=== PATIENT | female | born 1980 | race Hispanic/Latino ===

== ENCOUNTER 2018-06-02 09:12 | Emergency (ER) | payer BC, OTHER ==
[2018-06-02 10:13] VITALS: TEMP 97.9; BMI 34.9
--- NOTE | 2018-06-02 10:16 | ED PDOC ---
Arrival/HPI - General Time Seen by Provider: 06/02/18 10:01 Historian: Patient - History of Present Illness Narrative History of Present Illness (Text): 06/02/18 10:12 38yo female with no significant pmhx who present with complaint of left sided back/flank pain x6days. She reports associated urinary frequency and odorous urine. States started having fever yesterday and nauseous today. States she had similar symptoms 3years ago when she was treated for kidney infection. she denies vomiting, diarrhea, hematuria, abdominal pain, any other complaint. Past Medical History - Provider Review Nursing Documentation Reviewed: Yes - Past Medical History Past Medical History: No Previous - Psychiatric Hx Depression: No Hx Emotional Abuse: No Hx Physical Abuse: No Hx Substance Use: No - Surgical History Hx Section: Yes Hx Tonsillectomy: Yes - Suicidal Assessment Feels Threatened In Home Enviroment: No Family/Social History - Physician Review Nursing Documentation Reviewed: Yes Family/Social History: Unknown Family HX Smoking Status: Never Smoked Hx Alcohol Use: No Hx Substance Use: No Hx Substance Use Treatment: No Allergies/Home Meds Allergies/Adverse Reactions: Allergies No Known Allergies Allergy (Verified 06/02/18 10:11) Review of Systems - Physician Review All systems were reviewed & negative as marked: Yes - Review of Systems Constitutional: Fevers Eyes: Normal ENT: Normal Respiratory: Normal Cardiovascular: Normal Gastrointestinal: Normal Genitourinary Female: Normal Musculoskeletal: Back Pain Skin: Normal Neurological: Normal Endocrine: Normal Hemo/Lymphatic: Normal Psychiatric: Normal Physical Exam Vital Signs Reviewed: Yes Vital Signs Temp Pulse Resp BP Pulse Ox 06/02/18 12:45 76 18 122/74 99 06/02/18 10:12 97.9 F 79 17 144/95 H 97 Temperature: Afebrile Blood Pressure: Normal Pulse: Regular Respiratory Rate: Normal Appearance: Positive for: Well-Appearing, Non-Toxic, Comfortable Pain Distress: None Mental Status: Positive for: Alert and Oriented X 3 - Systems Exam Head: Present: Atraumatic, Normocephalic Pupils: Present: PERRL Extroacular Muscles: Present: EOMI Conjunctiva: Present: Normal Mouth: Present: Moist Mucous Membranes Neck: Present: Normal Range of Motion Respiratory/Chest: Present: Clear to Auscultation, Good Air Exchange. No: Respiratory Distress, Accessory Muscle Use Cardiovascular: Present: Regular Rate and Rhythm, Normal S1, S2. No: Murmurs Abdomen: No: Tenderness, Distention, Peritoneal Signs, Rebound, Guarding, McBurney's Point Tender, Rovsing's Sign Present Back: Present: CVA Tenderness (Left) Upper Extremity: Present: Normal Inspection. No: Cyanosis, Edema Lower Extremity: Present: Normal Inspection. No: Edema Neurological: Present: GCS=15, CN II-XII Intact, Speech Normal Skin: Present: Warm, Dry, Normal Color. No: Rashes Psychiatric: Present: Alert, Oriented x 3, Normal Insight, Normal Concentration Medical Decision Making ED Course and Treatment: 06/02/18 20:18 Pt presented to ED for stated history.She was not in any distress. Hemodynamically stable. she had CVAT and abdominal/pelvic CT was ordered to r/o renal colic, pyeloneprhitis. Her lab was unremarkable and she was hydrated. Her pain improved in ED with medication. She had trace leuk in the urine. 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 Minor multilevel degenerative spondylosis as described above. Result was DW the pt. Pt was given keflex secondary to her symptoms and finding in UA. - Lab Interpretations Lab Results: 06/02/18 10:44 06/02/18 10:44 Lab Results 06/02/18 10:44: PT 12.0, INR 1.04, APTT 27.4 06/02/18 10:44: Sodium 139, Potassium 4.1, Chloride 103, Carbon Dioxide 26, Anion Gap 15, BUN 10, Creatinine 0.6 L, Est GFR ( Amer) > 60, Est GFR (Non-Af Amer) > 60, Random Glucose 96, Calcium 9.1, Total Bilirubin 0.5, AST 14, ALT 12, Alkaline Phosphatase 74, Total Protein 8.1, Albumin 4.5, Globulin 3.6, Albumin/Globulin Ratio 1.2 06/02/18 10:44: Urine Color Yellow, Urine Appearance Clear, Urine pH 6.0, Ur Specific Tyner 1.020, Urine Protein Negative, Urine Glucose (UA) Negative, Urine Ketones Negative, Urine Blood Negative, Urine Nitrate Negative, Urine Bilirubin Negative, Urine Urobilinogen 0.2, Ur Leukocyte Esterase Trace H, Urine RBC 0 - 2, Urine WBC 2 - 5, Ur Epithelial Cells 4 - 5, Urine Bacteria Mod 06/02/18 10:44: WBC 9.6, RBC 4.66, Hgb 13.2, Hct 40.0, MCV 85.8, MCH 28.3, MCHC 33.0, RDW 14.2, Plt Count 308, MPV 9.3, Gran % 73.8 H, Lymph % (Auto) 20.0 L, [place] % (Auto) 4.9, Eos % (Auto) 1.0 L, Baso % (Auto) 0.3, Gran # 7.10 H, Lymph # (Auto) 1.9, [place] # (Auto) 0.5, Eos # (Auto) 0.1, Baso # (Auto) 0.03 - RAD Interpretation Radiology Orders: 06/02/18 10:54 ABD & PELVIS W/O PO OR IV CONT [CT] Stat - Medication Orders Current Medication Orders: Discontinued Medications Cephalexin Monohydrate (Keflex) 500 mg PO STAT STA PRN Reason: Protocol Stop: 06/02/18 11:52 Last Admin: 06/02/18 12:30 Dose: 500 mg Sodium Chloride (Sodium Chloride 0.9%) 1,000 mls @ 999 mls/hr IV .Q1H1M STA Stop: 06/02/18 11:17 Last Admin: 06/02/18 10:30 Dose: 999 mls/hr eMAR Start Stop Document 06/02/18 10:30 BENITEZ (Rec: 06/02/18 10:51 BENITEZ [id number]) Intravenous Solution Start Date 06/02/18 Start Time 10:30 End Date 06/02/18 End time 11:30 Total Infusion Time 60 Ketorolac Tromethamine (Toradol) 30 mg IVP STAT STA Stop: 06/02/18 11:24 Last Admin: 06/02/18 11:47 Dose: 30 mg MAR Pain Assessment Document 06/02/18 11:47 BENITEZ (Rec: 06/02/18 11:47 BENITEZ [id number]) Pain Reassessment Is this a pain reassessment? No Sleep Is patient sleeping during reassessment? No Presence of Pain Presence of Pain Yes IVP Administration Document 06/02/18 11:47 BENITEZ (Rec: 06/02/18 11:47 BENITEZ [id number]) Charges for Administration # of IVP Administrations 1 Ondansetron HCl (Zofran Inj) 4 mg IVP STAT STA Stop: 06/02/18 11:24 Last Admin: 06/02/18 11:48 Dose: 4 mg IVP Administration Document 06/02/18 11:48 BENITEZ (Rec: 06/02/18 11:48 BENITEZ [id number]) Charges for Administration # of IVP Administrations 1 Disposition/Present on Arrival - Present on Arrival Any Indicators Present on Arrival: No History of DVT/PE: No History of Uncontrolled Diabetes: No Urinary Catheter: No History Surgical Site Infection Following: None - Disposition Have Diagnosis and Disposition been Completed?: Yes Diagnosis: UTI (urinary tract infection) Disposition: HOME/ ROUTINE Disposition Time: 11:55 Patient Plan: Discharge Condition: STABLE Discharge Instructions (ExitCare): Urinary Tract Infections in Adults Additional Instructions: Follow up with your Doctor Drink plenty of fluids Return to ED for any new or worsening symptoms Prescriptions: Cephalexin [Keflex] 500 mg PO TID #21 capsule Referrals: Marilynn Reina MD [Medical Doctor] - Follow up with primary Forms: [employer] ([employer])
[2018-06-02] MEDS ORDERED: Sodium Chloride 0.9% 1,000 ML IV STA (10:17)
[2018-06-02 10:48] LABS: BASO # 0.03 K/mm3 (0.0-2.0); BASO % 0.3 % (0.0-3.0); EOS # 0.1 (0.0-0.7); GRAN # 7.1 (1.4-6.5); GRAN % 73.8 % (50.0-68.0); HEMOGLOBIN 13.2 g/dL (12.0-16.0); LYMPH # 1.9 (1.2-3.4); MEAN CELL VOLUME 85.8 fl (80.0-105.0); MEAN CORPUSCULAR HEMOGLOBIN 28.3 pg (25.0-35.0); MEAN PLATELET VOLUME 9.3 fl (7.0-11.0); MONO # 0.5 (0.1-0.6); MONO % 4.9 % (1.0-6.0); RBC 4.66 10^6/uL (3.5-6.1); RED CELL DISTRIBUTION WIDTH 14.2 % (11.5-14.5); URINE BILIRUBIN NEGATIVE (NEGATIVE); URINE BLOOD NEGATIVE (NEGATIVE); URINE GLUCOSE (UA) NEGATIVE (NEGATIVE); URINE LEUKOCYTE ESTERASE TRACE Leu/uL (NEGATIVE); URINE PROTEIN NEGATIVE mg/dL (<30 mg/dL); URINE UROBILINOGEN 0.2 E.U./dL (<1 E.U./dL); WHITE BLOOD COUNT 9.6 10^3/ul (4.5-11.0)
[2018-06-02 10:52] LABS: URINE APPEARANCE CLEAR (CLEAR); URINE COLOR YELLOW (YELLOW)
[2018-06-02 10:56] LABS: INR 1.04; PARTIAL THROMBOPLASTIN TIME 27.4 Seconds (25.1-36.5)
[2018-06-02 10:57] LABS: ALB/GLOB RATIO 1.2 (1.1-1.8); ALBUMIN 4.5 g/dL (3.0-4.8); ALT/SGPT 12 U/L (7-56); AST/SGOT 14 U/L (14-36); BLOOD UREA NITROGEN 10 mg/dL (7-21); CALCIUM 9.1 mg/dL (8.4-10.5); GFR NON-AFRICAN AMERICAN > 60; URINE RBC 0 - 2 /hpf (0-2)
[2018-06-02 10:58] LABS: URINE BACTERIA MOD (NEG)
--- NOTE | 2018-06-02 11:43 | CT ---
Date of service: 06/02/2018 PROCEDURE: CT abdomen pelvis HISTORY: Left flank pain COMPARISON: None. TECHNIQUE: Contiguous axial images of the abdomen and pelvis without oral or intravenous contrast material. Additional 2D sagittal and coronal reformats generated. This CT exam was performed using one or more of the following dose reduction techniques: Automated exposure control, adjustment of the mA and/or kV according to patient size, and/or use of iterative reconstruction technique. Radiation dose: Total exam DLP = 1103.85 mGy-cm. FINDINGS: LOWER THORAX: Heart size within range of normal. No significant pericardial effusion. There is a tiny hiatal hernia. Lung bases clear. No infiltrate effusion or basilar pneumothorax. LIVER: Liver exhibits relatively normal size measuring approximately 17 cm in CC dimension. GALLBLADDER AND BILE DUCTS: Gallbladder is physiologically distended. No evidence of intraluminal gallbladder calculi. PANCREAS: Unremarkable. No mass. No ductal dilatation. SPLEEN: Spleen exhibits normal size and attenuation pattern without mass collection or calcification.. There appear to be at least 2 small splenules located subjacent to the main body of the spleen.. ADRENALS: No adrenal lesions seen. KIDNEYS AND URETERS: Kidneys demonstrate relatively symmetric size. There is a tiny approximately 3 mm nonobstructing calculus lower pole collecting system right kidney. No evidence of left-sided nephrolithiasis. No evidence of hydronephrosis.. No stone or hydronephrosis. BLADDER: Urinary bladder is incompletely distended which in part accounts for thick-walled appearance. Correlation with urinalysis recommended to exclude cystitis/UTI REPRODUCTIVE: Unremarkable. APPENDIX: Normal appendix. BOWEL: Evaluation of the bowel slightly limited due to the lack of oral contrast. Stomach isn't completely distended. Visualized loops of small bowel exhibit normal contour and caliber. No evidence of acute mechanical small bowel obstruction. Stool and air seen throughout the large bowel. There are few scattered colonic diverticula seen along the sigmoid and descending colon however no evidence of acute diverticulitis PERITONEUM: Unremarkable. No fluid collection. No free air. Tiny fat containing umbilical hernia. LYMPH NODES: Unremarkable. No enlarged lymph nodes. VASCULATURE: Unremarkable. No aortic aneurysm. BONES: No fracture or destructive lesion. OTHER FINDINGS: None. IMPRESSION: Small nonobstructing calculus lower pole collecting system right kidney. No evidence of left-sided nephrolithiasis. No evidence of hydronephrosis. Urinary bladder incompletely distended which may in part account for thick-walled appearance however correlation with urinalysis recommended to exclude UTI/cystitis. Diverticulosis without radiographic evidence of acute diverticulitis.
[2018-06-02 13:04] VITALS: BP 122/74; PULSE 76; RESP 18; O2SAT 99
== END 2018-06-02 13:05 | disposition home or self-care (01) ==
LOC: ED 09:12
DX: N39.0 Urinary tract infection, site not specified (principal)
CPT/HCPCS: 74176; 80053; 81001; 85025; 85610; 85730; 87086; 96361; 96374; 96375; 99283; J1885; J2405; J7030